=== PATIENT | male | born 1965 | race Caucasian/White ===

== ENCOUNTER 2023-01-02 08:14 | Outpatient (CLI) | payer OTHER, SELFPAY ==
[2023-01-02 17:20] LABS: Creatinine Urine 172.8 mg/dL
[2023-01-02 17:22] LABS: MALB Creatinine Ratio 24.4 mg/g (0-30); Microalbumin Urine Random 42.2 mg/L (0-16.7)
[2023-01-02 18:44] LABS: Alanine Aminotransferase 27 U/L (6-50); Albumin Level 4.3 g/dL (3.5-5.1); Alkaline Phosphatase 79 U/L (38-126); Anion Gap 12 mmol/L (8-16); Aspartate Amino Transferase 28 U/L (17-59); Bilirubin,Total 0.9 mg/dL (0.2-1.3); Blood Urea Nitrogen 17 mg/dL (9-20); Calcium 9.2 mg/dL (8.4-10.2); Carbon Dioxide 23 mmol/L (22-30); Chloride 104 mmol/L (98-107); Estimated Glomerular Filt Rate > 60; Glucose 111 mg/dL (65-110); Potassium 4.3 mmol/L (3.4-5.0); Sodium 139 mmol/L (137-145)
[2023-01-02 18:48] LABS: Cholesterol 135 mg/dL (0-200); HDL Direct 38 mg/dL; Triglycerides 100 mg/dL (<150)
[2023-01-02 18:59] LABS: LDL Cholesterol Direct 74 mg/dL; Thyroid Stimulating Hormone Reflex 0.168 uIU/mL (0.465-4.68)
[2023-01-02 20:03] LABS: Free T4 Free Thyroxine Reflex 1.44 ng/dL (0.78-2.19)
[2023-01-02 20:29] LABS: Hemoglobin A1C 6.6 % (<5.7)
[2023-01-02 20:45] LABS: Total Triiodothyronine (T3) 1.29 NG/ML (0.97-1.69)
== END 2023-01-02 08:15 | disposition home or self-care (01) ==
LOC: ANHGOSHLAB 08:17
PROVIDERS: Internal Medicine; PCP Family Medicine; Visit Provider Family Medicine
DX: E11.9 Type 2 diabetes mellitus without complications (principal); E89.0 Postprocedural hypothyroidism; Z13.228 Encounter for screening for other metabolic disorders; E78.2 Mixed hyperlipidemia
CPT/HCPCS: 36415; 80053; 80061; 82043; 83036; 84439; 84443; 84480

== ENCOUNTER 2023-02-14 13:50 | Outpatient (CLI) | payer OTHER, SELFPAY ==
[2023-02-14 19:25] LABS: Thyroid Stimulating Hormone 0.908 uIU/mL (0.465-4.680)
== END 2023-02-14 13:51 | disposition home or self-care (01) ==
LOC: ANHGOSHLAB 13:51
PROVIDERS: PCP Family Medicine; Visit Provider Family Medicine
DX: E89.0 Postprocedural hypothyroidism (principal); Z79.899 Other long term (current) drug therapy; E11.9 Type 2 diabetes mellitus without complications; I10 Essential (primary) hypertension; E78.2 Mixed hyperlipidemia
CPT/HCPCS: 36415; 84443